=== PATIENT | male | born 1940 | race Asian ===

== ENCOUNTER → 2016-08-28 | Outpatient (CLI) | payer OTHER ==
--- NOTE | 2016-08-28 13:51 | DI ---
LOCATION OF DICTATION: [facility] EXAM: CHEST, PA LATERAL HISTORY: ITS.REASON: Left-sided chest pain x2 years. COMPARISON: No prior studies available for comparison. FINDINGS: The heart size is normal. The mediastinal configuration is unremarkable. There are no consolidating opacities or pleural effusions. There is no evidence for a pneumothorax. The osseous structures are within normal limits. IMPRESSION: No acute cardiopulmonary abnormality is identified. .
--- NOTE | 2016-08-28 20:54 | ECHOF ---
ECHOCARDIOGRAM DATE OF PROCEDURE August 28, 2016 This is a two-dimensional echo with spectral Doppler, color-flow and M-mode. It was obtained in a patient with chest pain. Left atrial dimension is normal. Left ventricular end-diastolic dimension is normal. Left ventricular wall thickness is normal. LV systolic function is normal with ejection fraction of 72%. Right atrium is normal. Right ventricle is normal. Aortic root dimension is normal. Mitral valve is morphologically normal with trace of mitral regurgitation. Aortic valve is a trileaflet structure with no stenosis. Trace of aortic insufficiency is present. Tricuspid valve shows trace of tricuspid regurgitation with normal estimated pulmonary artery systolic pressure of 24. Pulmonary valve shows trace of pulmonary insufficiency. There is no pericardial effusion. IMPRESSION 1. Normal LV systolic function with ejection fraction of 72%. 2. Trace of pulmonary insufficiency. 3. Trace of aortic insufficiency. 4. Trace of tricuspid regurgitation with normal estimated pulmonary artery systolic pressure of 24. 5. Trace of mitral regurgitation. MTDD
== END ==
LOC: IMA 13:07
DX: Z02.9 Encounter for administrative examinations, unspecified (principal)
CPT/HCPCS: 93306